=== PATIENT | female | born 1980 | race Caucasian/White ===

== ENCOUNTER 2016-06-18 15:52 | Emergency (ER) | payer SELFPAY ==
[2016-06-18 17:06] VITALS: BP 126/85; PULSE 66; RESP 16; TEMP 98.2; O2SAT 96
[2016-06-18] MEDS ORDERED: DEXAMETHASONE 4 MG TAB PO ONE (17:55)
[2016-06-18] MEDS ORDERED: ALBUTEROL INH PREPACK MDI TAKEHOME ONE (17:55)
[2016-06-18] MEDS ORDERED: guaiFENesin/CODEINE PHOS 10 ML UDCUP PO ONE (17:55)
[2016-06-18] MEDS ORDERED: HYDROCOD/APAP 5/325 PREPACK#6 BTL TAKEHOME ONE (17:55)
--- NOTE | 2016-06-18 17:56 | UCPHY ---
H & P Patient Type: Established Chief Complaint Nursing Narrative: dry cough and sore throat x 1.5 weeks. now has "red spots" on tonsils and is painful to swallow. no nausea, no fevers. Source: Patient Exam Limitations: No limitations - Personal History LMP (Females 10-55): 1-7 Days Ago - Medical/Surgical History Hx Asthma: No Hx Chronic Respiratory Disease: No Hx Diabetes: No Hx Cardiac Disease: No Hx Renal Disease: No Hx Cirrhosis: No Hx Alcoholism: No Hx HIV/AIDS: No Hx Splenectomy or Spleen Trauma: No Other PMH: none - Family History Significant Family History: No pertinent family hx - Social History Smoking Status: Never smoked Alcohol Use: None Drug Use: None Time Seen by Provider: 06/18/16 17:38 HPI/ROS: CHIEF COMPLAINT: sore throat, cough HISTORY OF PRESENT ILLNESS: 35-year-old female presents emergency department complaining of sore throat and dry cough with nasal congestion x1 week. Patient reports her cough is worse at night, keeping her awake. She reports nasal congestion. No fevers or chills, no fatigue, no ear pain. 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 Patient denies chest pain or shortness of breath. REVIEW OF SYSTEMS: A comprehensive 10 point review of systems is otherwise negative aside from elements mentioned in the history of present illness. (Su Knapp) - Physical Exam Exam: General: Alert, nontoxic. ENT: Tympanic membranes clear, external auditory canal, external ear and surrounding soft tissue including over the mastoid unremarkable. Nasopharynx is injected, there is rhinorrhea. Oropharynx with moderate erythema. There is no exudate. No tonsillar hypertrophy. No asymmetry. The uvula is midline. No elevation of tongue. There is no hoarseness. No drooling, patient has good control of their oral secretions. No trismus. No stridor. Cardiac: Regular rate and rhythm. Respiratory: Lungs clear to auscultation bilaterally. Neurological: no meningismus. Skin: No rashes. (Su Knapp) Constitutional: Initial Vital Signs Temperature (C) 36.8 C 06/18/16 17:03 Heart Rate 66 06/18/16 17:03 Respiratory Rate 16 06/18/16 17:03 Blood Pressure 126/85 H 06/18/16 17:03 O2 Sat (%) 96 06/18/16 17:03 O2 Delivery Mode Room Air Allergies/Adverse Reactions: Penicillins Allergy (Mild, Verified 06/18/16 17:01) Rash vancomycin [Vancomycin] Allergy (Mild, Verified 06/18/16 17:01) Red Man Syndrome Home Medications: Medication Instructions Recorded Fluticasone Nasal [Flonase Nasal 1 sprays NASAL DAILY #1 mdi 06/18/16 [place] (RX)] Guaifenesin/Codeine Phosphate 10 ml PO HS PRN #100 ml 06/18/16 [Guaifenesin-Codeine Liquid] Hydrocodone/APAP 5/325 [[place] 1 tab PO Q4H PRN #7 tab 06/18/16 5/325] Medical Decision Making Other Provider: The patient was evaluated and managed by the nurse practitioner, Su Knapp. My co-signature indicates that I have reviewed this chart and I agree with the findings and plan of care as documented. I am the secondary supervising physician. (Ivett Burgos) - Data Points Laboratory Results: 06/18/16 06/18/16 Unknown 17:30 Group A Strep Screen NEGATIVE (NEGATIVE) Group A Strep DNA Pending Medications Given: Discontinued Medications Hydrocodone Bitart/Acetaminophen ([place] 5/325mg Prepack#6) 1 btl TAKEHOME EDNOW ONE Stop: 06/18/16 17:56 Last Admin: 06/18/16 18:17 Dose: 1 btl Albuterol Sulfate (Proventil Inh Prepack) 1 mdi TAKEHOME EDNOW ONE Stop: 06/18/16 17:56 Last Admin: 06/18/16 18:18 Dose: 1 mdi Dexamethasone (Decadron) 10 mg PO EDNOW ONE Stop: 06/18/16 17:56 Last Admin: 06/18/16 18:18 Dose: 10 mg Guaifenesin/Codeine Phosphate (Robitussin Ac) 10 ml PO EDNOW ONE Stop: 06/18/16 17:56 Last Admin: 06/18/16 18:19 Dose: Not Given Departure - Departure Disposition: Home, Routine, Self-Care Clinical Impression: Viral syndrome Condition: Good Instructions: Viral Syndrome (ED) Additional Instructions: Take over the counter Tylenol and ibuprofen as instructed alternating them every 4 hours. Rest, drink plenty of fluids. Use 1 spray of Flonase in each nostril daily for 7 days, use 2 puffs of the albuterol inhaler every 4-6 hours as needed for cough, take Nucla as needed for pain, guaifenesin with codeine at night for cough. Use a saline nasal rinse, humidifier at night, hot steam showers. Return to the ED for difficulty breathing, chest pain, other concerns. Referrals: [facility] [Other] - As per Instructions Prescriptions: Fluticasone Nasal [Flonase Nasal [place] (RX)] 1 sprays NASAL DAILY #1 mdi Guaifenesin/Codeine Phosphate [Guaifenesin-Codeine Liquid] 10 ml PO HS PRN #100 ml PRN Reason: Cough, Moderate Hydrocodone/APAP 5/325 [[place] 5/325] 1 tab PO Q4H PRN #7 tab PRN Reason: Pain, Moderate - PQRS PQRS Measurement: na (Su Knapp)
== END 2016-06-18 18:19 | disposition home or self-care (01) ==
LOC: CED 15:52
DX: B34.9 Viral infection, unspecified (principal)
CPT/HCPCS: 87880-PO; G0463-PO